=== PATIENT | male | born 1930 | race Caucasian/White ===

== ENCOUNTER 2016-10-19 21:58 | Inpatient (IN) | payer OTHER ==
[~2016-10-19] VITALS: Ht 152.4 cm; Wt 89.9 kg
[~2016-10-19 21:58] MED LIST: DONEPEZIL HCL10 MG PO; FLOMAX0.4 MG PO; LASIX20 MG PO; LISINOPRIL5 MG PO; NORVASC10 MG PO; SEROQUEL50 MG PO; TAMSULOSIN HCL0.4 MG PO; XARELTO20 MG PO
[2016-10-19 22:34] LABS: MCH 26.6 PG (29.0-34.0); MCHC 32.3 G/DL (30.0-36.0); MCV 82.4 FL (86-99); MEAN PLAT.VOLUME 8.7 uM^3 (9.0-12.4); PLATELET COUNT 211 K/uL (156-360); RBC DIS.WIDTH-CV 14.8 % (11.8-14.6); RBC DIS.WIDTH-SD 43.8 % (39-53); RED BLOOD COUNT 3.64 M/uL (4.00-5.50); WHITE BLOOD COUNT 8.7 K/uL (4.1-10.2)
[2016-10-19 22:46] LABS: CHLORIDE 109 mEq/L (99-109); POTASSIUM 3.8 mEq/L (3.7-5.4); SODIUM 139 mEq/L (136-147)
[2016-10-19 22:49] LABS: GLUCOSE 116 mg/dL (70-99)
[2016-10-19 22:50] LABS: ANION GAP 11 MEQ/L (2-14)
[2016-10-19 22:51] LABS: TOTAL BILIRUBIN 0.4 mg/dL (0.0-1.0)
[2016-10-19 22:52] LABS: ALKALINE PHOSPHATASE 93 IU/L (3-129)
[2016-10-19 22:53] LABS: GFR ESTIMATE (CALCULATED) 21 mL/min/
[2016-10-19 22:54] LABS: DIRECT BILIRUBIN 0.1 mg/dL (0.0-0.3); UREA NITROGEN (BUN) 74 mg/dL (9-23)
[2016-10-19 22:56] LABS: LIPASE 54 U/L (1.0-51.0)
[2016-10-20] MEDS ORDERED: KETOCONAZOLE120 ML TP (00:47)
[2016-10-20] MEDS ORDERED: MILK OF MAGN PO (00:48)
[2016-10-20] MEDS ORDERED: GENTLE LAXATIVE10 MG PR (00:49)
[2016-10-20] MEDS ORDERED: FLEET ENEMA-AD118 ML PR (00:49)
[2016-10-20] MEDS ORDERED: ACETAMINOPHEN325 M1 PO (00:50)
[2016-10-20] MEDS ORDERED: MAALOX ADVANCE355 ML PO (00:51)
[2016-10-20 09:32] LABS: INTACT PARATHYROID HORMONE 95 pg/mL (10-69)
[2016-10-20 13:55] VITALS: BP 161/90
[2016-10-20 14:58] LABS: ADD MIUA? YES; BILIRUBIN NEGATIVE; BLOOD LARGE; GLUCOSE (STRIP) 50; KETONES NEGATIVE; LEUKOCYTES MODERATE; NITRITE NEGATIVE; PROTEIN (STRIP) >=500; SPECIFIC GRAVITY 1.017 (1.000-1.030); UROBILINOGEN 0.2 MG/DL (0.2-1.0)
[2016-10-20 15:07] LABS: COLOR RED ((YELLOW))
[2016-10-20 15:21] LABS: BACTERIA NONE SEEN /HPF; EPITHELIAL CELLS NONE SEEN /HPF; MUCUS NONE SEEN /LPF; RED BLOOD CELLS TNTC /HPF (0-5); UCUL ADDED? NO; WHITE BLOOD CELLS 15-20 /HPF (0-5); WHITE BLOOD CELLS CLUMP FEW /HPF (0-5)
[2016-10-20 16:24] VITALS: BP 153/76
[2016-10-20 19:30] LABS: CHLORIDE 113 mEq/L (99-109); POTASSIUM 3.9 mEq/L (3.7-5.4); SODIUM 142 mEq/L (136-147)
[2016-10-20 19:31] LABS: GLUCOSE 111 mg/dL (70-99)
[2016-10-20 19:33] LABS: ANION GAP 11 MEQ/L (2-14)
[2016-10-20 19:35] LABS: GFR ESTIMATE (CALCULATED) 25 mL/min/
[2016-10-20 19:36] LABS: UREA NITROGEN (BUN) 64 mg/dL (9-23)
[2016-10-20 20:00] VITALS: BP 173/81
[2016-10-20 23:46] VITALS: BP 133/62
[2016-10-21 04:27] VITALS: BP 137/67
[2016-10-21 11:29] VITALS: BP 149/70
[2016-10-21 12:55] LABS: HEMATOCRIT 30.4 % (38.0-50.0); MCH 26.4 PG (29.0-34.0); MCHC 31.3 G/DL (30.0-36.0); MCV 84.4 FL (86-99); MEAN PLAT.VOLUME 9.2 uM^3 (9.0-12.4); PLATELET COUNT 214 K/uL (156-360); RBC DIS.WIDTH-CV 15.1 % (11.8-14.6); RBC DIS.WIDTH-SD 45.8 % (39-53)
[2016-10-21 13:17] LABS: ANION GAP 8 MEQ/L (2-14); CHLORIDE 112 MEQ/L (99-109); GFR ESTIMATE (CALCULATED) 26 mL/min/; GLUCOSE 154 mg/dL (70-99); POTASSIUM 3.9 MEQ/L (3.7-5.4); SAMPLE HEMOLYSIS CHECK 0; SAMPLE ICTERIC CHECK 0; SAMPLE LIPEMIA CHECK 0; SODIUM 142 MEQ/L (136-147); UREA NITROGEN (BUN) 58 mg/dL (9-23)
[2016-10-21 15:59] VITALS: BP 142/70
[2016-10-21 20:09] VITALS: BP 138/81
[2016-10-21 23:54] VITALS: BP 151/71
[2016-10-22 08:13] LABS: CHLORIDE 113 mEq/L (99-109); SODIUM 141 mEq/L (136-147)
[2016-10-22 08:16] LABS: ANION GAP 10 MEQ/L (2-14)
[2016-10-22 08:18] LABS: GLUCOSE 85 mg/dL (70-99)
[2016-10-22 08:19] LABS: GFR ESTIMATE (CALCULATED) 27 mL/min/
[2016-10-22 08:20] LABS: UREA NITROGEN (BUN) 52 mg/dL (9-23)
[2016-10-22 09:05] VITALS: BP 172/80
[2016-10-22 11:13] VITALS: BP 168/78
[2016-10-22 15:50] VITALS: BP 162/78
[2016-10-22 19:56] VITALS: BP 187/88
[2016-10-22 21:00] VITALS: BP 150/72
[2016-10-23 07:59] VITALS: BP 141/79
[2016-10-23 08:00] LABS: ANION GAP 12 MEQ/L (2-14); CHLORIDE 109 MEQ/L (99-109); GFR ESTIMATE (CALCULATED) 27 mL/min/; GLUCOSE 94 mg/dL (70-99); POTASSIUM 4.2 MEQ/L (3.7-5.4); SAMPLE HEMOLYSIS CHECK 0; SAMPLE ICTERIC CHECK 0; SAMPLE LIPEMIA CHECK 0; SODIUM 141 MEQ/L (136-147); UREA NITROGEN (BUN) 52 mg/dL (9-23)
[2016-10-23 08:16] LABS: EOSINOPHIL COUNT 0.6 K/uL (0-0.3); HEMATOCRIT 31.5 % (38.0-50.0); IMMATURE GRANULOCYTE (%) 0.7 % (0.0-0.7); IMMATURE GRANULOCYTE COUNT 0.1 K/uL; INSTRUMENT ABS NEUTROPHIL CT 5.5 K/uL; LYMPHOCYTE COUNT 1.4 K/uL (1.0-2.8); MCH 26.6 PG (29.0-34.0); MCHC 32.1 G/DL (30.0-36.0); MCV 83.1 FL (86-99); MEAN PLAT.VOLUME 8.9 uM^3 (9.0-12.4); MONOCYTE (%) 8.4 % (3-12); MONOCYTE COUNT 0.7 K/uL (0-0.8); NEUTROPHIL (%) 66.5 % (45-76); NEUTROPHIL COUNT 5.5 K/uL (1.8-6.4); PLATELET COUNT 248 K/uL (156-360); RBC DIS.WIDTH-CV 15.4 % (11.8-14.6); RBC DIS.WIDTH-SD 46.1 % (39-53); RED BLOOD COUNT 3.79 M/uL (4.00-5.50)
[2016-10-23 08:24] LABS: WHITE BLOOD COUNT 8.2 K/uL (4.1-10.2)
[2016-10-23 11:48] VITALS: BP 140/65
[2016-10-23 15:31] VITALS: BP 137/64
[2016-10-23 20:00] VITALS: BP 132/62
[2016-10-24] VITALS: BP 145/71
[2016-10-24 08:00] VITALS: BP 163/77
[2016-10-24 08:37] LABS: EOSINOPHIL (%) 7.2 % (0-5); EOSINOPHIL COUNT 0.6 K/uL (0-0.3); HEMATOCRIT 31.1 % (38.0-50.0); IMMATURE GRANULOCYTE (%) 0.6 % (0.0-0.7); IMMATURE GRANULOCYTE COUNT 0.1 K/uL; INSTRUMENT ABS NEUTROPHIL CT 5.2 K/uL; LYMPHOCYTE COUNT 1.5 K/uL (1.0-2.8); MCH 26.4 PG (29.0-34.0); MCHC 31.8 G/DL (30.0-36.0); MCV 82.9 FL (86-99); MEAN PLAT.VOLUME 9.2 uM^3 (9.0-12.4); MONOCYTE (%) 10.5 % (3-12); MONOCYTE COUNT 0.9 K/uL (0-0.8); NEUTROPHIL (%) 62.8 % (45-76); NEUTROPHIL COUNT 5.2 K/uL (1.8-6.4); PLATELET COUNT 247 K/uL (156-360); RBC DIS.WIDTH-CV 15.2 % (11.8-14.6); RBC DIS.WIDTH-SD 45.8 % (39-53); RED BLOOD COUNT 3.75 M/uL (4.00-5.50); WHITE BLOOD COUNT 8.3 K/uL (4.1-10.2)
[2016-10-24 09:13] LABS: ANION GAP 10 MEQ/L (2-14); CHLORIDE 107 MEQ/L (99-109); GFR ESTIMATE (CALCULATED) 25 mL/min/; GLUCOSE 84 mg/dL (70-99); IRON 39 MCG/DL (35-150); POTASSIUM 3.9 MEQ/L (3.7-5.4); SAMPLE HEMOLYSIS CHECK 0; SAMPLE ICTERIC CHECK 0; SAMPLE LIPEMIA CHECK 0; SODIUM 137 MEQ/L (136-147); UREA NITROGEN (BUN) 59 mg/dL (9-23)
[2016-10-24 09:25] LABS: FERRITIN 34 NG/ML (22-322)
[2016-10-24 10:51] VITALS: BP 154/97
[2016-10-24] MEDS ORDERED: AMLODIPINE BESYL5 MG PO (12:07)
[2016-10-24] MEDS ORDERED: FEROSUL325 MG PO (12:07)
[2016-10-24] MEDS ORDERED: VITAMIN D-32000 UNI2 PO (12:07)
[2016-10-24 15:55] VITALS: BP 144/68
== END 2016-10-24 17:06 | DRG 683 ==
LOC: EME → EDBD 21:58 → EME 21:58 → EDOF 10-20 05:32 → 5SOUTH 10-20 05:32
PROVIDERS: Family Medicine; Hospitalist; Internal Medicine; Internal Medicine Nephrology
DX: N17.9 Acute kidney failure, unspecified (principal); N31.9 Neuromuscular dysfunction of bladder, unspecified; N13.30 Unspecified hydronephrosis; N13.4 Hydroureter; E11.22 Type 2 diabetes mellitus with diabetic chronic kidney disease; N40.0 Benign prostatic hyperplasia without lower urinary tract symptoms; I48.91 Unspecified atrial fibrillation; E87.8 Other disorders of electrolyte and fluid balance, not elsewhere classified; G82.20 Paraplegia, unspecified; N32.9 Bladder disorder, unspecified; R32 Unspecified urinary incontinence; I12.9 Hypertensive chronic kidney disease with stage 1 through stage 4 chronic kidney disease, or unspecified chronic kidney disease; N18.9 Chronic kidney disease, unspecified; K86.9 Disease of pancreas, unspecified; F03.90 Unspecified dementia, unspecified severity, without behavioral disturbance, psychotic disturbance, mood disturbance, and anxiety; G71.0 Muscular dystrophy; D63.1 Anemia in chronic kidney disease; E55.9 Vitamin D deficiency, unspecified; Z68.38 Body mass index [BMI] 38.0-38.9, adult; Z86.12 Personal history of poliomyelitis; E21.3 Hyperparathyroidism, unspecified
CPT/HCPCS: 74176; 76770; 80048; 80048 91; 80053; 80069; 81003; 82248; 82306; 82607; 82728; 82746; 83540; 83690; 83970; 84466; 85025; 85027; 87086; 93970; 99281; 99285; J1644; J3486; J7030; J7120